=== PATIENT | female | born 1980 | race American Indian/Alaskan Native ===

== ENCOUNTER 2017-04-10 05:59 | Emergency (ER) | payer OTHER ==
--- NOTE | 2017-04-10 08:07 | Emergency Department Report ---
ED ENT HPI - General Chief complaint: Dental/Oral Stated complaint: TOOTHACHE Time Seen by Provider: 04/10/17 07:11 Source: patient Mode of arrival: Ambulatory Limitations: No Limitations - History of Present Illness Initial comments: Patient comes in the ER today with complaints of left upper tooth pain for the past 2 days. Patient states that she was eating some steak the other day and felt pain in her left upper tooth. The patient denies any fracture to her tooth but does state that she believes she may have had a bad tooth there prior to eating the steak and it just now is bothering her. Since this time, patient feels like the left side of her face is become swollen and it is very painful. Patient has not called the dentist for her condition as of yet. MD complaint: tooth pain -: days(s) (2) - Related Data Previous Rx's Medication Instructions Recorded Last Taken Type Amoxicillin 1,000 mg PO BID #40 capsule 04/10/17 Unknown Rx traMADol [Ultram 50 MG tab] 50 mg PO Q4HR PRN #20 tablet 04/10/17 Unknown Rx Allergies Allergy/AdvReac Type Severity Reaction Status Date / Time [place] [employer] Allergy Rash Verified 04/10/17 06:04 ED Dental HPI - General Chief complaint: Dental/Oral Stated complaint: TOOTHACHE Time Seen by Provider: 04/10/17 07:11 Source: patient Mode of arrival: Ambulatory Limitations: No Limitations - Related Data Previous Rx's Medication Instructions Recorded Last Taken Type Amoxicillin 1,000 mg PO BID #40 capsule 04/10/17 Unknown Rx traMADol [Ultram 50 MG tab] 50 mg PO Q4HR PRN #20 tablet 04/10/17 Unknown Rx Allergies Allergy/AdvReac Type Severity Reaction Status Date / Time [place] [employer] Allergy Rash Verified 04/10/17 06:04 ED Review of Systems ROS: Stated complaint: TOOTHACHE Other details as noted in HPI Constitutional: denies: chills, fever Eyes: denies: eye pain, eye discharge, vision change ENT: ear pain, dental pain. denies: throat pain, epistaxis, congestion Respiratory: denies: cough, shortness of breath, wheezing Cardiovascular: denies: chest pain, palpitations Endocrine: no symptoms reported Gastrointestinal: denies: abdominal pain, nausea, diarrhea Genitourinary: denies: urgency, dysuria, discharge Musculoskeletal: denies: back pain, joint swelling, arthralgia Skin: denies: rash, lesions Neurological: denies: headache, weakness, paresthesias Psychiatric: denies: anxiety, depression Hematological/Lymphatic: denies: easy bleeding, easy bruising ED Past Medical Hx - Past Medical History Previous Medical History?: No - Surgical History Past Surgical History?: No - Social History Smoking Status: Current Every Day Smoker Substance Use Type: Alcohol - Medications Home Medications: Home Medications Medication Instructions Recorded Confirmed Last Taken Type Amoxicillin 1,000 mg PO BID #40 capsule 04/10/17 Unknown Rx traMADol [Ultram 50 MG tab] 50 mg PO Q4HR PRN #20 tablet 04/10/17 Unknown Rx ED Physical Exam - General Limitations: No Limitations General appearance: alert, in no apparent distress - Head Head exam: Present: atraumatic, normocephalic, other (mild left maxillary tenderness to percussion) - Eye Eye exam: Present: normal appearance, PERRL. Absent: conjunctival injection - ENT ENT exam: Present: mucous membranes moist, TM's normal bilaterally, normal external ear exam, other (diffuse dental caries noted. Left upper molar dental caries noted with inflammation and gum swelling around teeth. No obvious abscess requiring I&D at this time.) - Neck Neck exam: Present: normal inspection. Absent: tenderness, lymphadenopathy - Respiratory Respiratory exam: Present: normal lung sounds bilaterally. Absent: respiratory distress - Cardiovascular Cardiovascular Exam: Present: regular rate, normal rhythm, normal heart sounds. Absent: systolic murmur, diastolic murmur, rubs, gallop - GI/Abdominal GI/Abdominal exam: Present: soft, normal bowel sounds - Extremities Exam Extremities exam: Present: normal inspection - Back Exam Back exam: Present: normal inspection - Neurological Exam Neurological exam: Present: alert, oriented X3 - Psychiatric Psychiatric exam: Present: normal affect, normal mood - Skin Skin exam: Present: warm, dry, intact, normal color. Absent: rash ED Course Vital Signs 04/10/17 06:04 Temperature 98.5 F Pulse Rate 97 H Respiratory 20 Rate Blood Pressure 143/93 O2 Sat by Pulse 100 Oximetry ED Medical Decision Making - Medical Decision Making Patient is nontoxic and hemodynamically stable. The patient does have multiple dental caries noted on exam. I believe patient is in early stages of a dental infection. I will start patient on antibiotics appropriately and patient is follow-up with dentist to ensure resolution of her condition. Patient is in agreement with treatment plan patient is stable for discharge. Critical care attestation.: If time is entered above; I have spent that time in minutes in the direct care of this critically ill patient, excluding procedure time. ED Disposition Clinical Impression: Pain, dental, Infected dental caries Disposition: TO HOME OR SELFCARE Is pt being admited?: No Does the pt Need Aspirin: No Condition: Good Instructions: Toothache (ED), Dental Abscess (ED) Prescriptions: Amoxicillin 1,000 mg PO BID #40 capsule traMADol [Ultram 50 MG tab] 50 mg PO Q4HR PRN #20 tablet PRN Reason: Pain Referrals: PRIMARY CARE, [Primary Care Provider] - 3-5 Days [facility] [Outside] - 3-5 Days Time of Disposition: 08:07
[2017-04-10 08:17] VITALS: BP 144/88
== END 2017-04-10 08:17 | disposition home or self-care (01) ==
LOC: ED 05:59
DX: K02.9 Dental caries, unspecified (principal); K04.7 Periapical abscess without sinus; F17.200 Nicotine dependence, unspecified, uncomplicated
CPT/HCPCS: 99282